=== PATIENT | female | born 1990 | race Caucasian/White ===

== ENCOUNTER 2019-11-26 07:28 | Emergency (ER) | payer OTHER ==
[~2019-11-26] VITALS: Ht 162.6 cm; Wt 108.4 kg
[2019-11-26 07:33] VITALS: BP 124/68
== END 2019-11-26 08:54 | disposition home or self-care (01) ==
LOC: ED 08:14
DX: S60.221A Contusion of right hand, initial encounter (principal); W19.XXXA Unspecified fall, initial encounter; Y93.01 Activity, walking, marching and hiking; Y92.098 Other place in other non-institutional residence as the place of occurrence of the external cause; Y99.8 Other external cause status
CPT/HCPCS: 99283